=== PATIENT | male | born 1955 | race African-American/Black ===

== ENCOUNTER 2018-04-30 12:47 | Inpatient (IN) | payer MEDICAID, OTHER ==
[~2018-04-30] VITALS: Ht 175.3 cm; Wt 72.6 kg
[2018-04-30] MEDS: VANCOMYCIN 1 G PREMIX 200 ML IV SCH ×2 (16:15→18:52)
[2018-04-30] MEDS ORDERED: SODIUM CHLORIDE 0.9% 1,000 ML IV ONE (16:15)
[2018-04-30] MEDS ORDERED: PIPERACILLIN/TAZ 3.375G PREMIX 50 ML IV ONE (16:15)
[2018-04-30 16:25] LABS: CHLORIDE 102 mEq/L (98-107); PARTIAL THROMBOPLASTIN TIME 25.9 sec (23.4-31.0)
[2018-04-30 16:26] LABS: BASOPHILS % 0.5 % (0.0-2.0); EOSINOPHILS % 5.6 % (0.0-5.0); HEMATOCRIT. 41.9 % (42.0-52.0); HEMOGLOBIN. 13.7 g/dL (14.0-18.0); LYMPHOCYTES % 26.7 % (20.0-50.0); MEAN CORPUSCULAR HEMOGLOBIN 26.2 pg (28.0-32.0); MEAN CORPUSCULAR VOLUME 80.3 fL (80.0-94.0); MEAN PLATELET VOLUME 8.2 fl (7.4-10.4); MONOCYTES % 4.5 % (2.0-8.0); NEUTROPHILS % 62.7 % (40.0-76.0); PLATELET 362 x1000/uL (130-400); RED BLOOD CELL COUNT 5.22 mill/uL (4.7-6.1); RED CELL DISTRIBUTION WIDTH 16.1 % (11.6-14.6)
[2018-04-30 16:26] LABS: CLARITY URINE CLEAR (CLEAR); COLOR URINE YELLOW (YELLOW); KETONES URINE NEGATIVE (NEGATIVE); LEUKOCYTE ESTERASE URINE NEGATIVE (NEGATIVE); NITRITE URINE NEGATIVE (NEGATIVE); OCCULT BLOOD URINE NEGATIVE (NEGATIVE); PROTEIN URINE NEGATIVE (NEGATIVE); SPECIFIC GRAVITY URINE 1.016 (1.005-1.030); UROBILINOGEN URINE 0.2 E.U./dL (0.2-1.0)
[2018-04-30 16:32] LABS: C REACTIVE PROTEIN QUANT 8.1 mg/L (0.0-3.0)
[2018-04-30] MEDS ORDERED: ACETAMINOPHEN 325MG TABLET PO PRN (19:00)
[2018-04-30] MEDS ORDERED: CLONIDINE 0.1MG TABLET PO PRN (19:00)
[2018-04-30] MEDS ORDERED: DEXTROSE 50% WATER 50ML SYRINGE IV PRN (19:00)
[2018-04-30] MEDS ORDERED: ONDANSETRON HCL 4MG/2ML INJ IV PRN (19:00)
[2018-04-30] MEDS: INSULIN LISPRO 100 UNITS/ML SUBCUT SCH (21:00)
[2018-04-30] MEDS: BLOOD SUGAR DIAGNOSTIC STRIP TEST SCH (21:00)
[2018-04-30 21:01] VITALS: BP 134/84
[2018-04-30] MEDS ORDERED: METF-816 MT (21:52)
[2018-04-30] MEDS ORDERED: ASPI-1079 PO (21:54)
[2018-04-30] MEDS ORDERED: LOSA1TAB40 MT (21:56)
[2018-04-30] MEDS ORDERED: SITA25TA3 MT (21:56)
[2018-04-30] MEDS ORDERED: TC025C15 TP (21:57)
[2018-04-30] MEDS ORDERED: FELO2.5T MT (21:57)
[2018-04-30] MEDS ORDERED: OMEG-95 MT (21:58)
[2018-04-30 23:10] VITALS: BP 134/85
[2018-04-30] MEDS: PIPERACILLIN/TAZ 3.375G PREMIX 50 ML IV SCH (23:52)
[2018-05-01 04:00] VITALS: BP 120/77
[2018-05-01] MEDS: PIPERACILLIN/TAZ 3.375G PREMIX 50 ML IV SCH ×2 (05:15→11:35)
[2018-05-01] MEDS: VANCOMYCIN 750 MG PREMIX 150 ML IV SCH ×2 (06:31→18:23)
[2018-05-01] MEDS: BLOOD SUGAR DIAGNOSTIC STRIP TEST SCH ×4 (06:31→20:55)
[2018-05-01 08:00] VITALS: BP 132/85
[2018-05-01] MEDS ORDERED: PNEUMOCOCCAL 23-VAL P-SAC VAC 0.5 ML IM ONE (08:00)
[2018-05-01] MEDS: INSULIN LISPRO 100 UNITS/ML SUBCUT SCH ×4 (08:25→21:09)
[2018-05-01] MEDS ORDERED: INFLUENZA VIRUS VACCINE(AFLURIA) 0.5ML SYR IM ONE (10:00)
[2018-05-01 11:49] LABS: BASOPHILS % 0.5 % (0.0-2.0); EOSINOPHILS % 7.3 % (0.0-5.0); HEMOGLOBIN. 12.1 g/dL (14.0-18.0); LYMPHOCYTES % 28.1 % (20.0-50.0); MEAN CORPUSCULAR HEMOGLOBIN 26.4 pg (28.0-32.0); MEAN CORPUSCULAR VOLUME 78.9 fL (80.0-94.0); MEAN PLATELET VOLUME 7.6 fl (7.4-10.4); MONOCYTES % 7.3 % (2.0-8.0); NEUTROPHILS % 56.8 % (40.0-76.0); PLATELET 342 x1000/uL (130-400); RED BLOOD CELL COUNT 4.57 mill/uL (4.7-6.1); RED CELL DISTRIBUTION WIDTH 15.5 % (11.6-14.6)
[2018-05-01 11:58] LABS: CHLORIDE 104 mEq/L (98-107)
[2018-05-01 12:00] VITALS: BP 157/98
[2018-05-01 12:05] VITALS: BP 139/97
[2018-05-01 16:00] VITALS: BP 118/85
[2018-05-01] MEDS ORDERED: ENOXAPARIN 40MG/0.4ML SYR SUBCUT SCH (17:00)
[2018-05-01] MEDS ORDERED: PIPERACILLIN/TAZ 3.375G PREMIX 50 ML IV SCH (18:00)
[2018-05-01 20:00] VITALS: BP 147/97
[2018-05-02] VITALS: BP 146/94
[2018-05-02 04:00] VITALS: BP 150/97
[2018-05-02] MEDS: VANCOMYCIN 750 MG PREMIX 150 ML IV SCH (06:35)
[2018-05-02] MEDS: BLOOD SUGAR DIAGNOSTIC STRIP TEST SCH (06:58)
[2018-05-02 08:00] VITALS: BP 172/112
[2018-05-02 08:56] LABS: BASOPHILS % 0.7 % (0.0-2.0); EOSINOPHILS % 5.4 % (0.0-5.0); HEMATOCRIT. 39.7 % (42.0-52.0); LYMPHOCYTES % 26.3 % (20.0-50.0); MEAN CORPUSCULAR HEMOGLOBIN 26.1 pg (28.0-32.0); MEAN CORPUSCULAR VOLUME 79.9 fL (80.0-94.0); MEAN PLATELET VOLUME 7.9 fl (7.4-10.4); MONOCYTES % 5.5 % (2.0-8.0); NEUTROPHILS % 62.1 % (40.0-76.0); PLATELET 348 x1000/uL (130-400); RED BLOOD CELL COUNT 4.97 mill/uL (4.7-6.1); RED CELL DISTRIBUTION WIDTH 15.8 % (11.6-14.6)
[2018-05-02] MEDS ORDERED: HYDROCHLOROTHIAZIDE 12.5MG CAPSULE PO SCH (09:00)
[2018-05-02] MEDS ORDERED: AMLODIPINE 2.5MG TABLET PO SCH (09:00)
[2018-05-02] MEDS ORDERED: LINAGLIPTIN 5MG TABLET PO SCH (09:00)
[2018-05-02] MEDS ORDERED: MEDICATION NOT ON FORMULARY EA (Sitagliptin Phosphate (Januvia) 1 TAB) MT SCH (09:00)
[2018-05-02] MEDS ORDERED: FELODIPINE MT SCH (09:00)
[2018-05-02] MEDS ORDERED: LOSARTAN POTASSIUM 100 MG TABLET PO SCH (09:00)
[2018-05-02 09:13] LABS: CHLORIDE 104 mEq/L (98-107)
[2018-05-02] MEDS: INSULIN LISPRO 100 UNITS/ML SUBCUT SCH (09:33)
== END 2018-05-02 13:17 | disposition left against medical advice (07) | DRG 383 ==
LOC: ER 12:47 → 6EST 16:13 → ENRESERV 18:38 → 6EST 22:35
PROVIDERS: ADMIT Internal Medicine; ATTEND Internal Medicine
DX: L03.116 Cellulitis of left lower limb (principal); N17.0 Acute kidney failure with tubular necrosis; E11.9 Type 2 diabetes mellitus without complications; D64.9 Anemia, unspecified; F12.90 Cannabis use, unspecified, uncomplicated; F17.200 Nicotine dependence, unspecified, uncomplicated; I10 Essential (primary) hypertension; Z53.21 Procedure and treatment not carried out due to patient leaving prior to being seen by health care provider; Z71.6 Tobacco abuse counseling
CPT/HCPCS: 36415; 73701; 80048; 80202; 82962; 83036; 83605; 84145; 85651; 86140; 90686; 93005; 93923; 93970; 96365; 99285; J1650; J1815; J2543; J3370; J7030; J7040